=== PATIENT | male | born 1995 | race Asian ===

== ENCOUNTER 2021-06-01 01:22 | Emergency (ER) | payer OTHER ==
[~2021-06-01] VITALS: Ht 177.8 cm; Wt 68.0 kg
[2021-06-01 02:25] VITALS: BP 128/71; TEMP 98.5
== END 2021-06-01 02:30 | disposition home or self-care (01) ==
LOC: ED 01:22
DX: N45.1 Epididymitis (principal)
CPT/HCPCS: 81000; 96372; 99283; J0696; J1885

== ENCOUNTER 2021-08-24 11:17 | Emergency (ER) | payer OTHER ==
[~2021-08-24] VITALS: Ht 177.8 cm; Wt 78.5 kg
[2021-08-24 11:25] VITALS: TEMP 98.1
[2021-08-24 13:02] VITALS: BP 120/76
== END 2021-08-24 13:03 | disposition home or self-care (01) ==
LOC: ED 11:17
DX: S00.83XA Contusion of other part of head, initial encounter (principal); S01.81XA Laceration without foreign body of other part of head, initial encounter; W20.8XXA Other cause of strike by thrown, projected or falling object, initial encounter; Y92.89 Other specified places as the place of occurrence of the external cause
CPT/HCPCS: 99282